=== PATIENT | female | born 1980 | race Two or more races ===

== ENCOUNTER 2022-10-10 14:42 | Emergency (ER) | payer OTHER ==
[2022-10-10] MEDS ORDERED: Sodium Chloride 0.9% 10 ML Syringe FLUSH PRN (14:58)
[2022-10-10] MEDS ORDERED: HYDROmorphone 1 MG/ML Syringe IVPUSH ONE ×4 (14:58→22:34)
[2022-10-10] MEDS ORDERED: Sodium Chloride 0.9% 2.5 ML Syringe FLUSH PRN (14:58)
[2022-10-10] MEDS ORDERED: diphenhydrAMINE 50 MG/ML SDV IVPUSH ONE ×2 (14:58→19:36)
[2022-10-10] MEDS ORDERED: Lactated Ringers 1,000 ML IV SCH (15:00)
[2022-10-10] MEDS ORDERED: methylPREDNISolone Sodium Succinate 125 MG/2 ML SDV IVPUSH ONE (15:52)
[2022-10-10] MEDS ORDERED: Insulin Regular, Human 100 Units/ML 10 ML Vial IVPUSH ONE (19:55)
[2022-10-10] MEDS ORDERED: Sodium Chloride 0.9% 1,000 ML IV ONE (19:56)
[2022-10-10] MEDS ORDERED: Iopamidol 755 Mg/ML 100 ML Bottle IVPUSH ONE (20:15)
[2022-10-10] MEDS ORDERED: Pantoprazole 40 MG in Sodium Chloride 0.9% 10 ML IVPUSH ONE (20:49)
[2022-10-10] MEDS ORDERED: Lidocaine 1% 5 ML VIAL ONE (21:30)
== END 2022-10-10 23:00 ==
LOC: MW.ED 14:42
DX: K56.609 Unspecified intestinal obstruction, unspecified as to partial versus complete obstruction (principal); Z88.8 Allergy status to other drugs, medicaments and biological substances; Z88.6 Allergy status to analgesic agent; Z91.041 Radiographic dye allergy status; Z88.5 Allergy status to narcotic agent; Z88.0 Allergy status to penicillin; Z88.2 Allergy status to sulfonamides; Z79.899 Other long term (current) drug therapy
CPT/HCPCS: 36415; 71045; 74177; 80053; 81003; 82947; 83690; 84702; 85025; 85610; 85730; 86850; 86900; 86901; 96361; 96374; 96375; 96376; 99285; C9113; J1170; J1200; J1815; J2930; J3490; J7030; J7120; Q9967